=== PATIENT | male | born 1955 | race Two or more races ===

== ENCOUNTER 2018-03-14 14:06 | Emergency (ER) | payer BC, OTHER ==
[~2018-03-14] VITALS: Ht 172.7 cm; Wt 73.0 kg
--- NOTE | 2018-03-14 14:08 | NUR ---
ED Nurse Note: patient biba after suffering a fall, patient states that he was getting out of an uber and then slipped on the ground, denies any loss of consciousness, at time of arrival patient does have a skin tear and an indentation on the posterior left side of his head, patient is alert and oriented x4, ambulatory with a steady gait, VSS
[2018-03-14 14:09] VITALS: BP 141/85
[2018-03-14] MEDS ORDERED: Lidocaine 1% Plain 30 ml INJ ONE (14:15)
--- NOTE | 2018-03-14 14:15 | NUR ---
ED Nurse Note: Patient states that his leukemia is in remission, has a 2 port picc line located on his upper right arm
--- NOTE | 2018-03-14 14:25 | Emergency Room Report ---
History of Present Illness General Chief Complaint: Multiple Trauma/Fall Source: Patient Present Illness HPI 63-year-old male with history of hypertension diabetes leukemia in remission has a history of low platelet count is presenting with ground-level fall. Says that he tripped out of the car hit his head sustaining a laceration to the back of his head. There is no LOC. Patient still complaining of some dizziness, no neck pain. No blurry vision no nausea no vomiting. Tetanus is up-to-date Allergies: Coded Allergies: No Known Allergies (Unverified , 03/14/18) Patient History Past Medical History: see triage record Past Surgical History: none Pertinent Family History: none Reviewed Nursing Documentation: PMH: Agreed; PSxH: Agreed Review of Systems All Other Systems: negative except mentioned in HPI Physical Exam Vital Signs Date Time Temp Pulse Resp B/P (MAP) Pulse Ox O2 Delivery O2 Flow Rate FiO2 03/14/18 14:01 98.1 107 20 141/85 98 Room Air Sp02 EP Interpretation: reviewed, normal General Appearance: alert, GCS 15, mild distress Head: normocephalic - Hematoma to the back of his head, WITH ABRASION, not actual gaping lac Eyes: bilateral eye normal inspection, bilateral eye PERRL, bilateral eye EOMI ENT: normal ENT inspection, normal pharynx, normal voice, moist mucus membranes Neck: normal inspection, full range of motion, supple Respiratory: normal inspection, lungs clear, normal breath sounds, no respiratory distress, no retraction, no wheezing, speaking full sentences, chest symmetrical Cardiovascular #1: normal inspection, regular rate, rhythm, normal capillary refill Cardiovascular #2: 2+ radial (R), 2+ radial (L) Gastrointestinal: normal inspection, non tender, soft, non-distended, no guarding Musculoskeletal: normal inspection, back normal, normal range of motion, non- tender Neurologic: normal inspection, alert, oriented x3, responsive, stove tender III-XII nml as tested, motor strength/tone normal, sensory intact, normal gait, speech normal Psychiatric: normal inspection, judgement/insight normal, memory normal Skin: normal inspection, normal color, no rash, warm/dry, well hydrated, normal turgor Procedures Critical Care Time Critical Care Time 40 minutes of critical care time performed in order to assess and manage the high probability of imminent of lifethreatening deterioration secondary to neurologic function excludes all billable procedures Medical Decision Making Diagnostic Impression: Primary Impression: Subarachnoid hemorrhage following injury Additional Impression: Thrombocytopenia ER Course 63-year-old male ground-level fall hit his head DDX: Intracranial bleed versus closed head injury without concussion Plan: Will obtain labs due to patient's history of low platelet count, CT head ER course: Patient has remained stable during ED stay. Bp has remained systolic 130-140 GCS 15 He has remained awake and alert and neurologically intact no nausea no vomiting GIVEN KEPPRA +PLT of 58, due to time constrain will not xfuse PLT as will cause delay, d/w this w Dr Hernandez Disposition: Xfer to [facility] I discussed the case with trauma surgeon Dr. Mueller and neurointensivist Dr Hernandez They have accepted patient for transfer. xfer via 911 ALS Please note that this Emergency Department Report was dictated using [employer] technology software, occasionally this can lead to erroneous entry secondary to interpretation by the dictation equipment Laboratory Tests Test 03/14/18 14:20 White Blood Count 5.3 K/UL (4.8-10.8) Red Blood Count 2.92 M/UL (4.70-6.10) L Hemoglobin 10.3 G/DL (14.2-18.0) L Hematocrit 29.7 % (42.0-52.0) L Mean Corpuscular Volume 102 FL (80-99) H Mean Corpuscular Hemoglobin 35.3 PG (27.0-31.0) H Mean Corpuscular Hemoglobin Concent 34.6 G/DL (32.0-36.0) Red Cell Distribution Width 13.1 % (11.6-14.8) Platelet Count 58 K/UL (150-450) L Mean Platelet Volume 8.4 FL (6.5-10.1) Neutrophils (%) (Auto) % (45.0-75.0) Lymphocytes (%) (Auto) % (20.0-45.0) Monocytes (%) (Auto) % (1.0-10.0) Eosinophils (%) (Auto) % (0.0-3.0) Basophils (%) (Auto) % (0.0-2.0) Neutrophils % (Manual) Pending Lymphocytes % (Manual) Pending Platelet Estimate Pending Platelet Morphology Pending Prothrombin Time 12.1 SEC (9.30-11.50) H Prothrombin Time INR 1.2 (0.9-1.1) H PTT 26 SEC (23-33) Sodium Level 141 MMOL/L (136-145) Potassium Level 3.0 MMOL/L (3.5-5.1) L Chloride Level 108 MMOL/L (98-107) H Carbon Dioxide Level 20 MMOL/L (21-32) L Anion Gap 13 mmol/L (5-15) Blood Urea Nitrogen 20 mg/dL (7-18) H Creatinine 0.8 MG/DL (0.55-1.30) Estimate Glomerular Filtration Rate > 60 mL/min (>60) Glucose Level 163 MG/DL (74-106) H Calcium Level 8.2 MG/DL (8.5-10.1) L Total Bilirubin 0.4 MG/DL (0.2-1.0) Aspartate Amino Transferase (AST) 30 U/L (15-37) Alanine Aminotransferase (ALT) 79 U/L (12-78) H Alkaline Phosphatase 86 U/L (46-116) Total Protein 6.4 G/DL (6.4-8.2) Albumin 3.6 G/DL (3.4-5.0) Globulin 2.8 g/dL Albumin/Globulin Ratio 1.3 (1.0-2.7) CT/MRI/US Diagnostic Results CT/MRI/US Diagnostic Results : Imaging Test Ordered: ct head Impression MPRESSION: Acute subarachnoid hemorrhage presumably traumatic involving the region of the anterior interhemispheric fissure. Posterior scalp contusion. Critical value communication. Findings were discussed via telephone with Dr. Haro in the emergency department 03/14/2018 at 3:00 PM. Last Vital Signs Date Time Temp Pulse Resp B/P (MAP) Pulse Ox O2 Delivery O2 Flow Rate FiO2 03/14/18 14:01 98.1 107 20 141/85 98 Room Air [facility] Condition: Critical Francine Haro M.D. Mar 14, 2018 14:25
[2018-03-14] MEDS ORDERED: LEVAQUIN500 MG ORAL (14:46)
[2018-03-14] MEDS ORDERED: IMITREX50 MG ORAL (14:46)
[2018-03-14] MEDS ORDERED: PREDNISONE10 MG ORAL (14:46)
[2018-03-14] MEDS ORDERED: NOXAFIL100 MG PO (14:46)
[2018-03-14] MEDS ORDERED: TACROLIMUS0.5 MG PO (14:46)
[2018-03-14] MEDS ORDERED: PANTOPRAZOLE SO40 MG ORAL (14:46)
[2018-03-14] MEDS ORDERED: AMLODIPINE BESY10 MG ORAL (14:46)
[2018-03-14] MEDS ORDERED: FLUOXETINE HCL40 MG ORAL (14:46)
[2018-03-14] MEDS ORDERED: COMPAZINE10 MG ORAL (14:46)
[2018-03-14] MEDS ORDERED: METFORMIN HCL1000 M1 ORAL (14:46)
[2018-03-14] MEDS ORDERED: GLUCOTROL XL10 MG ORAL (14:46)
[2018-03-14] MEDS ORDERED: CRESTOR20 MG ORAL (14:46)
[2018-03-14] MEDS ORDERED: OXYCODONE HCL5 M2 ORAL (14:46)
[2018-03-14] MEDS ORDERED: BUDESONIDE EC3 M1 PO (14:46)
[2018-03-14] MEDS ORDERED: METOPROLOL TART25 MG ORAL (14:46)
[2018-03-14] MEDS ORDERED: ACYCLOVIR400 MG ORAL (14:46)
--- NOTE | 2018-03-14 14:55 | NUR ---
ED Nurse Note: after CT, Dr. Haro informed patient that he will be transferred to a [facility] hospital due to patient having a brain bleed
[2018-03-14 15:02] LABS: HEMATOCRIT 29.7 % (42.0-52.0); HEMOGLOBIN 10.3 G/DL (14.2-18.0); MEAN CORPUSCULAR VOLUME 102 FL (80-99); RED BLOOD COUNT 2.92 M/UL (4.70-6.10); RED CELL DISTRIBUTION WIDTH 13.1 % (11.6-14.8); WHITE BLOOD COUNT 5.3 K/UL (4.8-10.8)
[2018-03-14 15:05] VITALS: BP 136/86
--- NOTE | 2018-03-14 15:05 | Diagnostic Imaging Report ---
Indication: Acute head trauma. Headache Technique: Contiguous 5 mm thick transaxial imaging of the head obtained in a Siemens Sensation [address] scanner. Soft tissue and bone windows generated. Automatic Exposure Control was utilized. Total Dose length Product (DLP): 1365.[address] Dose Index Volume (CTDIvol): 70.38 mGy Comparison: none Findings: There is a high density acute subarachnoid blood demonstrated within the cerebral sulci on both sides of the anterior interhemispheric fissure within the frontal lobes. This is bilateral. There may be a tiny subdural component along the upper margin of the anterior interhemispheric fissure. There is no edema or mass effect. There is generalized atrophy of the brain in keeping with the patient's age. Basal cisterns appear normal. The ventricles are symmetric. There is no fracture. Posterior scalp shows focal area of the swelling near the vertex. IMPRESSION: Acute subarachnoid hemorrhage presumably traumatic involving the region of the anterior interhemispheric fissure. Posterior scalp contusion. Critical value communication. Findings were discussed via telephone with Dr. Haro in the emergency department 03/14/2018 at 3:[address] scanner at [facility] is accredited by the [employer] and the scans are performed using dose optimization techniques as appropriate to a performed exam including Automatic Exposure control.
[2018-03-14 15:15] LABS: ANION GAP 13 mmol/L (5-15); BLOOD UREA NITROGEN 20 mg/dL (7-18); CALCIUM 8.2 MG/DL (8.5-10.1); CARBON DIOXIDE 20 MMOL/L (21-32); CHLORIDE 108 MMOL/L (98-107); CREATININE 0.8 MG/DL (0.55-1.30); SODIUM 141 MMOL/L (136-145)
[2018-03-14] MEDS ORDERED: levETIRAcetam 1,000mg/NS100ml 100 ML IVPB ONE (15:15)
[2018-03-14 15:17] LABS: INR 1.2 (0.9-1.1)
[2018-03-14 15:20] LABS: ALANINE AMINOTRANSFERASE 79 U/L (12-78); ALBUMIN 3.6 G/DL (3.4-5.0); ALBUMIN/GLOBULIN RATIO 1.3 (1.0-2.7); ALKALINE PHOSPHATASE 86 U/L (46-116); ASPARTATE AMINO TRANSFERASE 30 U/L (15-37); BILIRUBIN,TOTAL 0.4 MG/DL (0.2-1.0)
[2018-03-14 15:31] LABS: PLATELET COUNT 58 K/UL (150-450)
[2018-03-14] MEDS ORDERED: Solu-MEDROL 125mg Inj ONE (15:32)
--- NOTE | 2018-03-14 15:45 | NUR ---
ED Nurse Note: patient transported to [facility], report given to ISMAEL Hayes
[2018-03-14 15:51] VITALS: BP 136/85
== END 2018-03-14 15:51 | disposition short-term general hospital (02) ==
LOC: EDBD 14:06 → EMR 14:30
DX: S06.6X0A Traumatic subarachnoid hemorrhage without loss of consciousness, initial encounter (principal); Y92.89 Other specified places as the place of occurrence of the external cause; D69.6 Thrombocytopenia, unspecified
CPT/HCPCS: 36415; 70450; 80053; 85007; 85025; 85610; 85730; 96374; 99284; J1953; J2001